=== PATIENT | male | born 1985 | race Caucasian/White ===

== ENCOUNTER 2016-05-31 08:11 | Emergency (ER) | payer OTHER ==
[2016-05-31] MEDS ORDERED: Sodium Chloride 0.9% 1,000 ML IV STA ×2 (08:59→11:06)
[2016-05-31] MEDS ORDERED: Famotidine 20mg/50ml 50 ML IV STA (08:59)
--- NOTE | 2016-05-31 09:02 | ED PDOC ---
Arrival/HPI - General Chief Complaint: Abdominal Pain Time Seen by Provider: 05/31/16 08:59 Historian: Patient - History of Present Illness Narrative History of Present Illness (Text): 05/31/16 08:59 A 31 year old male, who denies any past medical history, presents to the emergency department complaining nausea, non-bilious non-bloody vomiting and abdominal cramping since this morning. Patient reports he ate shrimp and mussels last night. Patient denies any fever, diarrhea, chest pain, shortness of breath or any other complaints. Patient admits to marijuana use. PMD: None Time/Duration: Other (This morning) Symptom Course: Unchanged Quality: Other Context: Home Past Medical History - Provider Review Nursing Documentation Reviewed: Yes - Infectious Disease Hx of Infectious Diseases: None - Psychiatric Hx Substance Use: No Family/Social History - Physician Review Nursing Documentation Reviewed: Yes Family/Social History: No Known Family HX Smoking Status: WEEDS Hx Alcohol Use: No Hx Substance Use: No Allergies/Home Meds Allergies/Adverse Reactions: Allergies No Known Allergies Allergy (Verified 05/31/16 08:19) Physical Exam - Physical Exam Narrative Physical Exam (Text): - Review of Systems Constitutional: Normal. absent: Fatigue, Weight Change, Fevers Eyes: Normal ENT: Normal Respiratory: Normal absent: SOB, Cough, Sputum Cardiovascular: Normal absent: Chest pain, Palpitations, Syncope Gastrointestinal: (+) Abdominal cramping, Nausea, Vomiting absent: Diarrhea Genitourinary: Normal. absent: Dysuria, Frequency, Hematuria Musculoskeletal: Normal. absent: Arthralgias, Back Pain, Neck Pain Skin: Normal Neurological: Normal absent: Focal Weakness Endocrine: Normal Hemo/Lymphatic: Normal Psychiatric: Normal - Physical exam Patient appears age appropriate, speaking full sentences without difficulty - Systems Exam Head: Present: Atraumatic, Normocephalic Pupils: Present: PERRL Extraocular Muscles: Present: EOMI Conjunctiva: Present: Normal Mouth: Present: Moist Mucous Membranes Neck: Present: Normal Range of Motion. No: MIDLINE TENDERNESS, Paraspinal Tenderness Respiratory/Chest: Present: Clear to Auscultation, Good Air Exchange. No: Respiratory Distress, Accessory Muscle Use, Tachypneic Cardiovascular: Present: Regular Rate and Rhythm, Normal S1, S2, Peripheral Pulses Present. No: Murmurs Abdomen: Present: Normal Bowel Sounds, No: Tenderness, Peritoneal Signs, Rebound, Guarding, Distention Back: Present: Normal Inspection. No: Midline Tenderness, Paraspinal Tenderness Upper Extremity: Present: Normal Inspection. No: Cyanosis, Edema Lower Extremity: Present: Normal Inspection. No: Edema Neurological: Present: GCS=15, Speech Normal, cranial nerves II through XII fully intact with no cerebellar abnormality, neuro-sensory fully intact. No focal neurological deficits. Skin: Present: Warm, Dry, Normal Color. No: Rashes Lymphatic: Present: OX3, NI, NC Psychiatric: Present: Alert, Oriented x 3, Normal Insight, Normal Concentration Vital Signs Reviewed: Yes Vital Signs Temp Pulse Resp BP Pulse Ox 05/31/16 11:59 59 L 16 112/83 99 05/31/16 11:50 86 18 112/82 97 05/31/16 08:15 97.3 F L 18 141/102 H 98 05/31/16 08:12 97.3 F L 99 H 18 141/102 H 98 Temperature: Afebrile Blood Pressure: Hypertensive Pulse: Tachycardic Respiratory Rate: Normal Appearance: Positive for: Well-Appearing, Non-Toxic, Comfortable Pain Distress: None Mental Status: Positive for: Alert and Oriented X 3 Medical Decision Making ED Course and Treatment: 05/31/16 08:59 Impression: A 31 year old male with nausea, non-bilious non-bloody vomiting and abdominal cramping. Physical exam unremarkable. Plan: -- Abdomen and pelvis CT -- Labs -- Urinalysis -- Pepcid, IV fluids, Toradol nd Zofran -- Reassess and disposition Progress Notes: Report Date : 05/31/2016 10:37:00 PROCEDURE: CT Abdomen and Pelvis with contrast Dictator : Kevin Ibrahim MD IMPRESSION: Unremarkable contrast enhanced CT of the abdomen and pelvis. 05/31/16 13:21 On reevaluation, patient reports that he feels much better and would like to be discharged home. Patient's repeat abdominal exam is soft, nontender, non distended with positive bowel sounds in all 4 quadrants and no peritoneal signs. Patient is tolerating PO without any difficulty. Patient states he is not driving home Pt states he understands to return to the ER right away for new or worsening symptoms or for inability to f/u with PMD or specialist as instructed. Patient states that he fully agrees with and understands discharge instructions. States that he agrees with the plan and disposition. Verbalized and repeated discharge instructions and plan. I have given the patient opportunity to ask any additional questions. - Lab Interpretations Lab Results: 05/31/16 09:00 05/31/16 09:00 Lab Results 05/31/16 10:24: Urine Color Light yellow, Urine Appearance Clear, Urine pH 7.0, Ur Specific [place] 1.010, Urine Protein Trace H, Urine Glucose (UA) Negative, Urine Ketones Negative, Urine Blood Negative, Urine Nitrate Negative, Urine Bilirubin Negative, Urine Urobilinogen 0.2, Ur Leukocyte Esterase Negative, Urine RBC Negative, Urine WBC 0 - 2, Ur Epithelial Cells 0 - 2, Urine Bacteria Trace 05/31/16 09:00: WBC 8.0, RBC 4.66, Hgb 15.3, Hct 44.9, MCV 96.4, MCH 32.8, MCHC 34.1, RDW 12.9, Plt Count 219, MPV 11.8 H, Gran % 49.9 L, Lymph % (Auto) 38.3 H , [place] % (Auto) 9.2 H, Eos % (Auto) 2.0, Baso % (Auto) 0.6, Gran # 3.99, Lymph # 3.1, [place] # 0.7 H, Eos # 0.2, Baso # 0.05, PT 10.0, INR 0.93, APTT 24.3, Sodium 138, Potassium 4.1, Chloride 103, Carbon Dioxide 28, Anion Gap 11, BUN 15 , Creatinine 0.9, Est GFR ( Amer) > 60, Est GFR (Non-Af Amer) > 60, Random Glucose 100, Calcium 9.2, Total Bilirubin 0.6, AST 42, ALT 56, Alkaline Phosphatase 71, Total Protein 8.6 H, Albumin 4.1, Globulin 4.5, Albumin/ Globulin Ratio 0.9 L, Lipase 157 I have reviewed the lab results: Yes - RAD Interpretation Radiology Orders: 05/31/16 09:00 ABD & PELVIS IV CONTRAST ONLY [CT] Stat - Medication Orders Current Medication Orders: Discontinued Medications Acetaminophen (Tylenol 325mg Tab) 975 mg PO STAT STA Stop: 05/31/16 11:07 Last Admin: 05/31/16 11:49 Dose: 975 MG MAR Pain/Vitals Document 05/31/16 11:49 SRE (Rec: 05/31/16 11:49 SRE [id number]) Pain Reassessment Is This A Pain ReAssessment? Yes Sleep Is patient sleeping during reassessment? No Presence of Pain Presence of Pain Yes Pain Scale Used Pain Scale Used Numeric Location Pain Location Body Site Abdomen Description Intermittent Intensity 5 Scale Used Numeric Famotidine (Pepcid 20mg/50ml Premix) 50 mls @ 100 mls/hr IV STAT STA Stop: 05/31/16 09:28 Last Admin: 05/31/16 09:09 Dose: 100 MLS/HR eMAR Start Stop Document 05/31/16 09:09 SRE (Rec: 05/31/16 09:09 SRE [id number]) Intravenous Solution Start Date 05/31/16 Start Time 09:09 End Date 05/31/16 End time 09:40 Total Infusion Time 31 Sodium Chloride (Sodium Chloride 0.9%) 1,000 mls @ 1,000 mls/hr IV .Q1H STA Stop: 05/31/16 09:58 Last Admin: 05/31/16 09:10 Dose: 1,000 MLS/HR eMAR Start Stop Document 05/31/16 09:10 SRE (Rec: 05/31/16 09:10 SRE [id number]) Intravenous Solution Start Date 05/31/16 Start Time 09:10 End Date 05/31/16 End time 10:10 Total Infusion Time 60 Sodium Chloride (Sodium Chloride 0.9%) 1,000 mls @ 1,000 mls/hr IV .Q1H STA Stop: 05/31/16 12:05 Last Admin: 05/31/16 11:48 Dose: 1,000 MLS/HR eMAR Start Stop Document 05/31/16 11:48 SRE (Rec: 05/31/16 11:49 SRE [id number]) Intravenous Solution Start Date 05/31/16 Start Time 11:49 End Date 05/31/16 End time 12:50 Total Infusion Time 61 Iohexol (Omnipaque 350 100 Ml) Confirm Administered Dose 350 mg .ROUTE .STK-MED ONE Stop: 05/31/16 09:30 Ketorolac Tromethamine (Toradol) 15 mg IVP STAT STA Stop: 05/31/16 09:00 Last Admin: 05/31/16 09:09 Dose: 15 MG IVP Administration Document 05/31/16 09:09 SRE (Rec: 05/31/16 09:09 SRE [id number]) Charges for Administration # of IVP Administrations 1 Morphine Sulfate (Morphine) 4 mg IVP STAT STA Stop: 05/31/16 12:03 Last Admin: 05/31/16 12:27 Dose: 4 MG MAR Pain Assessment Document 05/31/16 12:27 SRE (Rec: 05/31/16 12:27 SRE [id number]) Pain Reassessment Is this a pain reassessment? Yes Sleep Is patient sleeping during reassessment? No Presence of Pain Presence of Pain Yes Pain Scale Used Pain Scale Used Numeric Location Pain Location Body Site Abdomen Description Description Intermittent Intensity of Pain at present 5 IVP Administration Document 05/31/16 12:27 SRE (Rec: 05/31/16 12:27 SRE [id number]) Charges for Administration # of IVP Administrations 1 Ondansetron HCl (Zofran Inj) 4 mg IVP STAT STA Stop: 05/31/16 09:00 Last Admin: 05/31/16 09:10 Dose: 4 MG IVP Administration Document 05/31/16 09:10 SRE (Rec: 05/31/16 09:10 SRE [id number]) Charges for Administration # of IVP Administrations 1 - Scribe Statement The provider has reviewed the documentation as recorded by the Francheska Kaplan Provider Scribe Attestation: All medical record entries made by the Scribe were at my direction and personally dictated by me. I have reviewed the chart and agree that the record accurately reflects my personal performance of the history, physical exam, medical decision making, and the department course for this patient. I have also personally directed, reviewed, and agree with the discharge instructions and disposition. Disposition/Present on Arrival - Present on Arrival Any Indicators Present on Arrival: No History of DVT/PE: No History of Uncontrolled Diabetes: No Urinary Catheter: No History of Decub. Ulcer: No History Surgical Site Infection Following: None - Disposition Have Diagnosis and Disposition been Completed?: Yes Diagnosis: Abdominal pain Disposition: HOME/ ROUTINE Disposition Time: 13:25 Patient Plan: Discharge Condition: GOOD Discharge Instructions (ExitCare): Gastroenteritis (ED), Acute Abdominal Pain ( ED) Additional Instructions: PLEASE RETURN TO THE EMERGENCY DEPARTMENT FOR NEW OR WORSENING SYMPTOMS. RETURN RIGHT AWAY IF YOU CANNOT FOLLOW UP WITH YOUR PRIMARY CARE DOCTOR, CLINIC, OR SPECIALIST IN 1-2 DAYS. Prescriptions: Ibuprofen [Motrin] 600 mg PO Q8 PRN #12 tab PRN Reason: Pain, Moderate (4-7) Famotidine [Pepcid] 20 mg PO BID #14 tab Ondansetron [Zofran Odt] 4 mg PO Q6 PRN #14 odt PRN Reason: Nausea/Vomiting Referrals: PCP,NO [Primary Care Provider] - Follow up with primary Sylvester Daniels MD [Staff Provider] - Follow up with primary Aaron Curry MD [Staff Provider] - Follow up with primary Forms: WORK NOTE
[2016-05-31 09:09] LABS: ADD MANUAL DIFF? NO
[2016-05-31 09:20] LABS: BASO # 0.05 K/mm3 (0.0-2.0); BASO % 0.6 % (0.0-3.0); EOS # 0.2 (0.0-0.7); GRAN # 3.99 (1.4-6.5); GRAN % 49.9 % (50.0-68.0); HEMATOCRIT 44.9 % (42.0-52.0); LYMPH # 3.1 (1.2-3.4); LYMPH % 38.3 % (22.0-35.0); MEAN CELL VOLUME 96.4 fL (80.0-105.0); MEAN CORPUSCULAR HEMOGLOBIN 32.8 pg (25.0-35.0); MEAN CORPUSCULAR HGB CONC 34.1 g/dl (31.0-37.0); MEAN PLATELET VOLUME 11.8 fl (7.0-11.0); MONO # 0.7 (0.1-0.6); MONO % 9.2 % (1.0-6.0); PLATELET COUNT 219 10^3/uL (120.0-450.0); RED CELL DISTRIBUTION WIDTH 12.9 % (11.5-14.5)
[2016-05-31 09:25] LABS: ALB/GLOB RATIO 0.9 (1.1-1.8); ALKALINE PHOSPHATASE 71 U/L (38-133); ALT/SGPT 56 U/L (7-56); AST/SGOT 42 U/L (15-59); BILIRUBIN,TOTAL 0.6 mg/dL (0.2-1.3); BLOOD UREA NITROGEN 15 mg/dL (7-21); CALCIUM 9.2 mg/dL (8.4-10.5); CARBON DIOXIDE 28 mmol/L (21-33); CHLORIDE 103 mmol/L (98-107); GFR AFRICAN-AMERICAN > 60; GLUCOSE,RANDOM 100 mg/dL (70-110); LIPASE 157 U/L (23-300); POTASSIUM 4.1 mmol/L (3.6-5.0); SODIUM 138 mmol/L (132-148); TOTAL PROTEIN 8.6 g/dL (5.8-8.3)
[2016-05-31 09:26] LABS: INR 0.93 (0.93-1.08); PARTIAL THROMBOPLASTIN TIME 24.3 Seconds (23.7-30.8)
[2016-05-31] MEDS ORDERED: Iohexol 350 MG/100 ML VIAL ONE (09:29)
[2016-05-31 10:36] LABS: URINE BILIRUBIN NEGATIVE (NEGATIVE); URINE BLOOD NEGATIVE (NEGATIVE); URINE GLUCOSE (UA) NEGATIVE (NEGATIVE); URINE KETONE NEGATIVE (NEGATIVE); URINE LEUKOCYTE ESTERASE NEGATIVE Leu/uL (NEGATIVE); URINE PROTEIN TRACE mg/dL (<30 mg/dL); URINE UROBILINOGEN 0.2 E.U./dL (<1 E.U./dL)
--- NOTE | 2016-05-31 10:38 | CT ---
PROCEDURE: CT Abdomen and Pelvis with contrast HISTORY: abd pain COMPARISON: None. TECHNIQUE: Contrast dose: 100 cc of Omni 350 Radiation dose: Total exam DLP = 663 mGy-cm. This CT exam was performed using one or more of the following dose reduction techniques: Automated exposure control, adjustment of the mA and/or kV according to patient size, and/or use of iterative reconstruction technique. FINDINGS: LOWER THORAX: Unremarkable. LIVER: Unremarkable. No gross lesion or ductal dilatation. GALLBLADDER AND BILE DUCTS: Unremarkable. PANCREAS: Unremarkable. No gross lesion or ductal dilatation. SPLEEN: Unremarkable. ADRENALS: Unremarkable. No mass. KIDNEYS AND URETERS: Unremarkable. No hydronephrosis. No solid mass. VASCULATURE: Unremarkable. No aortic aneurysm. BOWEL: Unremarkable. No obstruction. No gross mural thickening. APPENDIX: Normal appendix. PERITONEUM: Unremarkable. No free fluid. No free air. LYMPH NODES: Unremarkable. No enlarged lymph nodes. BLADDER: Unremarkable. REPRODUCTIVE: Unremarkable. BONES: No acute fracture. OTHER FINDINGS: There is a metal fragment in the right gluteal region. IMPRESSION: Unremarkable contrast enhanced CT of the abdomen and pelvis.
[2016-05-31 10:41] LABS: URINE APPEARANCE CLEAR (CLEAR); URINE COLOR LIGHT YELLOW (YELLOW)
[2016-05-31 10:42] LABS: URINE BACTERIA TRACE (NEG); URINE EPITHELIAL CELLS 0 - 2 /hpf (0-5); URINE RBC NEGATIVE /hpf (0-2); URINE WBC 0 - 2 /hpf (0-6)
[2016-05-31 12:00] VITALS: PULSE 59
[2016-05-31] MEDS ORDERED: Morphine 4 mg/ml ISec IVP STA (12:02)
[2016-05-31 13:49] VITALS: BP 118/76; RESP 18; TEMP 98.2; O2SAT 98
== END 2016-05-31 13:48 | disposition home or self-care (01) ==
LOC: ED 08:11
DX: R10.9 Unspecified abdominal pain (principal)
CPT/HCPCS: 74177; 80053; 81001; 83690; 85025; 85610; 85730; 96361; 96365; 96375; 99285; J1885; J2270; J2405; J7040; Q9967

== ENCOUNTER 2016-07-27 22:58 | Emergency (ER) | payer OTHER ==
[2016-07-27 23:37] VITALS: BP 114/73; PULSE 62; TEMP 98.2
--- NOTE | 2016-07-28 00:33 | ED PDOC ---
Arrival/HPI - General Chief Complaint: ENT Problem Time Seen by Provider: 07/28/16 00:20 Historian: Patient - History of Present Illness Narrative History of Present Illness (Text): 07/28/16 02:14 Beny Borja is a 31 year old male who presents to the emergency department complaining of sore throat discomfort since earlier today. Denies any fever, chills, headache, dizziness, chest pain, difficulty breathing, nausea, vomiting , diarrhea, urinary symptoms, or any other complaints at this time. Time/Duration: Other (since yesterday ) Symptom Onset: Gradual Symptom Course: Unchanged Severity Level: Mild Activities at Onset: Light Past Medical History - Provider Review Nursing Documentation Reviewed: Yes - Infectious Disease Hx of Infectious Diseases: None - Psychiatric Hx Substance Use: No (marijuana) - Anesthesia Hx Anesthesia: No Hx Anesthesia Reactions: No Hx Malignant Hyperthermia: No Family/Social History - Physician Review Nursing Documentation Reviewed: Yes Family/Social History: No Known Family HX Smoking Status: Light Smoker < 10 Cigarettes Daily Hx Alcohol Use: No Hx Substance Use: No (marijuana) Allergies/Home Meds Allergies/Adverse Reactions: Allergies No Known Allergies Allergy (Verified 07/27/16 23:37) Review of Systems - Physician Review All systems were reviewed & negative as marked: Yes - Review of Systems Constitutional: Normal. absent: Fatigue, Fevers ENT: Sore Throat Respiratory: Normal. absent: SOB, Cough, Sputum Cardiovascular: Normal. absent: Chest Pain, Palpitations Gastrointestinal: Normal. absent: Abdominal Pain, Stool Changes Genitourinary Male: Normal Neurological: Normal. absent: Headache, Dizziness Psychiatric: Normal Physical Exam Vital Signs Reviewed: Yes Vital Signs Temp Pulse Resp BP Pulse Ox 07/28/16 00:42 16 99 07/28/16 00:06 98.2 F 62 20 114/73 98 07/27/16 23:32 98.2 F 62 20 114/73 98 Temperature: Afebrile Blood Pressure: Normal Pulse: Regular Respiratory Rate: Normal Appearance: Positive for: Well-Appearing, Non-Toxic, Comfortable Pain Distress: None Mental Status: Positive for: Alert and Oriented X 3 - Systems Exam Head: Present: Atraumatic, Normocephalic Pupils: Present: PERRL Conjunctiva: Present: Normal Mouth: Present: Moist Mucous Membranes Pharnyx: Present: ERYTHEMA (erythematous tonsils ). No: EXUDATE Neck: Present: Normal Range of Motion Respiratory/Chest: Present: Clear to Auscultation, Good Air Exchange. No: Respiratory Distress, Accessory Muscle Use Cardiovascular: Present: Regular Rate and Rhythm, Normal S1, S2. No: Murmurs Abdomen: Present: Normal Bowel Sounds. No: Tenderness, Distention, Peritoneal Signs Upper Extremity: Present: Normal Inspection. No: Cyanosis, Edema Lower Extremity: Present: Normal Inspection. No: Edema Neurological: Present: GCS=15, CN II-XII Intact, Speech Normal Skin: Present: Warm, Dry, Normal Color. No: Rashes Psychiatric: Present: Alert, Oriented x 3, Normal Insight, Normal Concentration Medical Decision Making ED Course and Treatment: 07/28/16 02:19 Impression: A 31y/o male complaining of sore throat for past day Progress Notes: pt stable for discharge. Dc'd home on Amoxicillin and Motrin. Advised to present to emergency department for new/worsening symptoms and f/u with PMD within few days. - Medication Orders Current Medication Orders: Discontinued Medications Amoxicillin (Amoxil 500 Mg Cap) 500 mg PO STAT STA PRN Reason: Protocol Stop: 07/28/16 00:32 Last Admin: 07/28/16 00:40 Dose: 500 mg Ibuprofen (Motrin Tab) 800 mg PO STAT STA Stop: 07/28/16 00:32 Last Admin: 07/28/16 00:41 Dose: 800 mg - PA / MEDICATION COORDINATOR / Resident Statement / has reviewed & agrees with the documentation as recorded. Disposition/Present on Arrival - Present on Arrival Any Indicators Present on Arrival: No History of DVT/PE: No History of Uncontrolled Diabetes: No Urinary Catheter: No History of Decub. Ulcer: No History Surgical Site Infection Following: None - Disposition Have Diagnosis and Disposition been Completed?: Yes Diagnosis: Pharyngitis Disposition: HOME/ ROUTINE Disposition Time: 00:32 Patient Plan: Discharge Condition: GOOD Discharge Instructions (ExitCare): Pharyngitis (ED) Print Language: ROMANIAN Prescriptions: Amoxicillin 500 mg PO TID #30 tablet Ibuprofen [Motrin] 800 mg PO Q6H #20 tab Referrals: [facility] [place] [facility] [place] - Follow up with primary Forms: WORK NOTE
[2016-07-28 00:44] VITALS: RESP 16; O2SAT 99
== END 2016-07-28 00:52 | disposition home or self-care (01) ==
LOC: ED 22:58
DX: J02.9 Acute pharyngitis, unspecified (principal); F17.210 Nicotine dependence, cigarettes, uncomplicated

== ENCOUNTER 2016-08-12 20:35 | Emergency (ER) | payer OTHER ==
[2016-08-12] MEDS ORDERED: Sodium Chloride 0.9% 1,000 ML IV STA (20:58)
--- NOTE | 2016-08-12 21:02 | ED PDOC ---
Arrival/HPI - General Chief Complaint: Abdominal Pain Time Seen by Provider: 08/12/16 20:36 Historian: Patient - History of Present Illness Narrative History of Present Illness (Text): 08/12/16 20:55 Beny Borja is a 31 year old male, with no significant past medical history, who presents to the Emergency department complaining of vomiting and diarrhea today. Patient reports associated epigastric pain. Patient denies any fever, chills, chest pain, shortness of breath, urinary symptoms, back pain, neck pain , headache, dizziness, or any other complaints. Time/Duration: Other (today) Symptom Onset: Gradual Symptom Course: Unchanged Activities at Onset: Rest, Light Context: Home Past Medical History - Provider Review Nursing Documentation Reviewed: Yes - Infectious Disease Hx of Infectious Diseases: None - Psychiatric Hx Substance Use: No (marijuana) - Anesthesia Hx Anesthesia: No Hx Anesthesia Reactions: No Hx Malignant Hyperthermia: No Family/Social History - Physician Review Nursing Documentation Reviewed: Yes Family/Social History: Unknown Family HX Smoking Status: Former Smoker Hx Alcohol Use: No Hx Substance Use: No (marijuana) Allergies/Home Meds Allergies/Adverse Reactions: Allergies No Known Allergies Allergy (Verified 08/12/16 20:41) Review of Systems - Physician Review All systems were reviewed & negative as marked: Yes - Review of Systems Constitutional: Normal. absent: Fevers Eyes: Normal ENT: Normal Respiratory: Normal. absent: SOB, Cough Cardiovascular: Normal. absent: Chest Pain Gastrointestinal: Abdominal Pain, Diarrhea, Nausea, Vomiting Genitourinary Male: Normal. absent: Dysuria, Frequency, Hematuria, Urinary Output Changes Musculoskeletal: Normal. absent: Back Pain, Neck Pain Skin: Normal. absent: Rash Neurological: Normal. absent: Headache, Dizziness Endocrine: Normal Hemo/Lymphatic: Normal Psychiatric: Normal Physical Exam Vital Signs Reviewed: Yes Vital Signs Temp Pulse Resp BP Pulse Ox 08/12/16 23:45 18 99 08/12/16 20:41 98.6 F 65 16 145/104 H 97 Temperature: Afebrile Blood Pressure: Normal Pulse: Regular Respiratory Rate: Normal Appearance: Positive for: Well-Appearing, Non-Toxic, Comfortable Pain Distress: None Mental Status: Positive for: Alert and Oriented X 3 - Systems Exam Head: Present: Atraumatic, Normocephalic Pupils: Present: PERRL Extroacular Muscles: Present: EOMI Conjunctiva: Present: Normal Mouth: Present: Moist Mucous Membranes Neck: Present: Normal Range of Motion Respiratory/Chest: Present: Clear to Auscultation, Good Air Exchange. No: Respiratory Distress, Accessory Muscle Use Cardiovascular: Present: Regular Rate and Rhythm, Normal S1, S2. No: Murmurs Abdomen: Present: Normal Bowel Sounds. No: Tenderness, Distention, Peritoneal Signs Back: Present: Normal Inspection Upper Extremity: Present: Normal Inspection. No: Cyanosis, Edema Lower Extremity: Present: Normal Inspection. No: Edema Neurological: Present: GCS=15, CN II-XII Intact, Speech Normal Skin: Present: Warm, Dry, Normal Color. No: Rashes Psychiatric: Present: Alert, Oriented x 3, Normal Insight, Normal Concentration Medical Decision Making ED Course and Treatment: 08/12/16 20:55 Impression: 31 year old male complaining of vomiting, diarrhea, and epigastric pain. Differential Diagnosis include but are not limited to: gastritis Plan: -- Labs, lipase -- Urinalysis -- IV fluids -- Zofran -- Protonix -- Reassess and disposition Prior Visits: Notes and results from previous visits were reviewed. On 07/28/2016, pt was seen in the Emergency department complaining of sore throat. Pt was d/c home on Amoxicillin. Progress Notes: 08/12/16 23:23 On re-evaluation, the patient feels better and is in no acute distress. I have discussed the results and plan with the patient, who expresses understanding. Patient in agreement with plan to discharged home. Patient is stable for discharge. Patient was instructed to follow up with physician/clinic in 1-2 days or return if symptoms worsen or new concerning symptoms arise. Re-evaluation Time: 23:23 Reassessment Condition: Re-examined, Improved - Lab Interpretations Lab Results: 08/12/16 20:50 08/12/16 20:50 Lab Results 08/12/16 22:00: Urine Color Yellow, Urine Appearance Clear, Urine pH 6.0, Ur Specific [place] 1.025, Urine Protein Negative, Urine Glucose (UA) Negative, Urine Ketones Negative, Urine Blood Negative, Urine Nitrate Negative, Urine Bilirubin Negative, Urine Urobilinogen 0.2, Ur Leukocyte Esterase Negative 08/12/16 20:50: Sodium 139, Potassium 4.3, Chloride 103, Carbon Dioxide 27, Anion Gap 13, BUN 12, Creatinine 1.0, Est GFR ( Amer) > 60, Est GFR (Non- Af Amer) > 60, Random Glucose 89, Calcium 9.2, Total Bilirubin 0.7, AST 43, ALT 40, Alkaline Phosphatase 62, Total Protein 8.2, Albumin 4.2, Globulin 4.0, Albumin/Globulin Ratio 1.1, Lipase 141 08/12/16 20:50: PT 10.4, INR 0.96, APTT 23.8 08/12/16 20:50: WBC 8.6, RBC 4.45, Hgb 14.8, Hct 42.2, MCV 94.8, MCH 33.3, MCHC 35.1, RDW 12.6, Plt Count 179, MPV 12.4 H, Gran % 50.1, Lymph % (Auto) 39.0 H, [place] % (Auto) 8.5 H, Eos % (Auto) 1.9, Baso % (Auto) 0.5, Gran # 4.30, Lymph # 3.3, [place] # 0.7 H, Eos # 0.2, Baso # 0.04 I have reviewed the lab results: Yes - Medication Orders Current Medication Orders: Discontinued Medications Hydromorphone HCl (Dilaudid) 1 mg IVP STAT STA Stop: 08/12/16 21:40 Last Admin: 08/12/16 21:46 Dose: 1 mg Hydromorphone HCl (Dilaudid) Confirm Administered Dose 1 mg .ROUTE .STK-MED ONE Stop: 08/12/16 21:46 Last Admin: 08/12/16 21:48 Dose: Sodium Chloride (Sodium Chloride 0.9%) 1,000 mls @ 1,000 mls/hr IV .Q1H STA Stop: 08/12/16 21:57 Last Admin: 08/12/16 21:13 Dose: 1,000 mls/hr Morphine Sulfate (Morphine) 2 mg IVP STAT STA Stop: 08/12/16 21:22 Last Admin: 08/12/16 21:25 Dose: 2 mg Morphine Sulfate (Morphine) Confirm Administered Dose 2 mg .ROUTE .STK-MED ONE Stop: 08/12/16 21:24 Last Admin: 08/12/16 21:47 Dose: Ondansetron HCl (Zofran Inj) 4 mg IVP STAT STA Stop: 08/12/16 20:59 Last Admin: 08/12/16 21:14 Dose: 4 mg Pantoprazole Sodium (Protonix Inj) 40 mg IVP ONCE STA Stop: 08/12/16 21:02 Last Admin: 08/12/16 21:14 Dose: 40 mg - Nolviaibcristofer Statement The provider has reviewed the documentation as recorded by the Francheska Keenan All medical record entries made by the Francheska were at my direction and personally dictated by me. I have reviewed the chart and agree that the record accurately reflects my personal performance of the history, physical exam, medical decision making, and the department course for this patient. I have also personally directed, reviewed, and agree with the discharge instructions and disposition. Disposition/Present on Arrival - Present on Arrival Any Indicators Present on Arrival: No History of DVT/PE: No History of Uncontrolled Diabetes: No Urinary Catheter: No History of Decub. Ulcer: No History Surgical Site Infection Following: None - Disposition Have Diagnosis and Disposition been Completed?: Yes Diagnosis: Gastritis Disposition: HOME/ ROUTINE Disposition Time: 23:24 Condition: GOOD Discharge Instructions (ExitCare): Gastritis (ED) Prescriptions: Pantoprazole Sodium [Protonix] 40 mg PO DAILY #14 ect Ondansetron [Zofran Odt] 8 mg PO TID PRN #10 odt PRN Reason: Nausea/Vomiting
[2016-08-12 21:08] VITALS: BP 145/104; PULSE 65; TEMP 98.6
[2016-08-12 21:17] LABS: ADD MANUAL DIFF? NO
[2016-08-12 21:20] LABS: BASO # 0.04 K/mm3 (0.0-2.0); BASO % 0.5 % (0.0-3.0); EOS # 0.2 (0.0-0.7); EOS % 1.9 % (1.5-5.0); GRAN % 50.1 % (50.0-68.0); HEMATOCRIT 42.2 % (42.0-52.0); LYMPH # 3.3 (1.2-3.4); MEAN CELL VOLUME 94.8 fL (80.0-105.0); MEAN CORPUSCULAR HEMOGLOBIN 33.3 pg (25.0-35.0); MEAN CORPUSCULAR HGB CONC 35.1 g/dl (31.0-37.0); MEAN PLATELET VOLUME 12.4 fl (7.0-11.0); MONO # 0.7 (0.1-0.6); MONO % 8.5 % (1.0-6.0); PLATELET COUNT 179 10^3/uL (120.0-450.0); RED CELL DISTRIBUTION WIDTH 12.6 % (11.5-14.5); WHITE BLOOD COUNT 8.6 10^3/ul (4.5-11.0)
[2016-08-12] MEDS ORDERED: Morphine 2 mg/ml ISec IVP STA (21:21)
[2016-08-12] MEDS ORDERED: Morphine 2 mg/ml ISec ONE (21:23)
[2016-08-12 21:32] LABS: INR 0.96 (0.93-1.08); PARTIAL THROMBOPLASTIN TIME 23.8 Seconds (23.7-30.8)
[2016-08-12 21:37] LABS: ALB/GLOB RATIO 1.1 (1.1-1.8); ALKALINE PHOSPHATASE 62 U/L (38-133); ALT/SGPT 40 U/L (7-56); AST/SGOT 43 U/L (15-59); BILIRUBIN,TOTAL 0.7 mg/dL (0.2-1.3); BLOOD UREA NITROGEN 12 mg/dL (7-21); CALCIUM 9.2 mg/dL (8.4-10.5); CARBON DIOXIDE 27 mmol/L (21-33); CHLORIDE 103 mmol/L (98-107); GFR AFRICAN-AMERICAN > 60; GLUCOSE,RANDOM 89 mg/dL (70-110); LIPASE 141 U/L (23-300); POTASSIUM 4.3 mmol/L (3.6-5.0); SODIUM 139 mmol/L (132-148); TOTAL PROTEIN 8.2 g/dL (5.8-8.3)
[2016-08-12] MEDS ORDERED: HYDROmorphone 1 mg/ml ISec IVP STA (21:39)
[2016-08-12] MEDS ORDERED: HYDROmorphone 1 mg/ml ISec ONE (21:45)
[2016-08-12 22:18] LABS: URINE BILIRUBIN NEGATIVE (NEGATIVE); URINE BLOOD NEGATIVE (NEGATIVE); URINE GLUCOSE (UA) NEGATIVE (NEGATIVE); URINE KETONE NEGATIVE (NEGATIVE); URINE LEUKOCYTE ESTERASE NEGATIVE Leu/uL (NEGATIVE); URINE PROTEIN NEGATIVE mg/dL (<30 mg/dL); URINE UROBILINOGEN 0.2 E.U./dL (<1 E.U./dL)
[2016-08-12 22:21] LABS: URINE APPEARANCE CLEAR (CLEAR); URINE COLOR YELLOW (YELLOW)
[2016-08-12 23:55] VITALS: RESP 18; O2SAT 99
== END 2016-08-12 23:47 | disposition home or self-care (01) ==
LOC: ED 20:35
DX: K29.70 Gastritis, unspecified, without bleeding (principal)
CPT/HCPCS: 80053; 81003; 83690; 85025; 85610; 85730; 96374; 96375; 99283; C9113; J1170; J2270; J2405; J7040

== ENCOUNTER 2017-01-29 03:27 | Emergency (ER) | payer SELFPAY ==
[2017-01-29 03:37] VITALS: BMI 25.1
[2017-01-29 03:45] VITALS: RESP 17; TEMP 98.3
--- NOTE | 2017-01-29 03:56 | ED PDOC ---
Arrival/HPI - General Chief Complaint: Abdominal Pain Time Seen by Provider: 01/29/17 03:30 Historian: Patient - History of Present Illness Narrative History of Present Illness (Text): 01/29/17 03:35 Beny Borja is a 32 year old male complaining of generalized abdominal pain tonight. Patient denies any fevers, chills, chest pain, shortness of breath, nausea, vomiting, diarrhea, back pain, neck pain, urinary/bowel changes, headache, dizziness, or any other complaint. Time/Duration: 1-3 hours Symptom Onset: Gradual Symptom Course: Unchanged Activities at Onset: Light Past Medical History - Provider Review Nursing Documentation Reviewed: Yes - Infectious Disease Hx of Infectious Diseases: None - Pulmonary Hx Respiratory Disorders: No - Psychiatric Hx Substance Use: No (marijuana) - Anesthesia Hx Anesthesia: No Hx Anesthesia Reactions: No Hx Malignant Hyperthermia: No Family/Social History - Physician Review Nursing Documentation Reviewed: Yes Family/Social History: No Known Family HX Smoking Status: Light Smoker < 10 Cigarettes Daily Hx Alcohol Use: No Hx Substance Use: No (marijuana) Allergies/Home Meds Allergies/Adverse Reactions: Allergies No Known Allergies Allergy (Verified 08/12/16 20:41) Review of Systems - Physician Review All systems were reviewed & negative as marked: Yes - Review of Systems Constitutional: absent: Fevers, Night Sweats Eyes: absent: Vision Changes ENT: absent: Hearing Changes Respiratory: absent: SOB, Cough Cardiovascular: absent: Chest Pain Gastrointestinal: Abdominal Pain Genitourinary Male: absent: Dysuria Musculoskeletal: absent: Arthralgias, Back Pain Skin: absent: Rash, Pruritis Neurological: absent: Headache, Dizziness Endocrine: absent: Diaphoresis Hemo/Lymphatic: absent: Adenopathy Psychiatric: absent: Anxiety, Depression Physical Exam Vital Signs Reviewed: Yes Vital Signs Temp Pulse Resp BP Pulse Ox 01/29/17 06:30 64 17 122/60 99 01/29/17 03:44 98.3 F 56 L 17 111/77 97 Temperature: Afebrile Blood Pressure: Normal Pulse: Bradycardic Respiratory Rate: Normal Appearance: Positive for: Well-Appearing, Non-Toxic, Comfortable Pain Distress: None Mental Status: Positive for: Alert and Oriented X 3 - Systems Exam Head: Present: Atraumatic, Normocephalic Pupils: Present: PERRL Extroacular Muscles: Present: EOMI Conjunctiva: Present: Normal Mouth: Present: Moist Mucous Membranes Neck: Present: Normal Range of Motion Respiratory/Chest: Present: Clear to Auscultation, Good Air Exchange. No: Respiratory Distress, Accessory Muscle Use Cardiovascular: Present: Regular Rate and Rhythm, Normal S1, S2. No: Murmurs Abdomen: Present: Normal Bowel Sounds. No: Tenderness, Distention, Peritoneal Signs Back: Present: Normal Inspection Upper Extremity: Present: Normal Inspection. No: Cyanosis, Edema Lower Extremity: Present: Normal Inspection. No: Edema Neurological: Present: GCS=15, CN II-XII Intact, Speech Normal Skin: Present: Warm, Dry, Normal Color. No: Rashes Psychiatric: Present: Alert, Oriented x 3, Normal Insight, Normal Concentration Medical Decision Making ED Course and Treatment: 01/29/17 03:54 Impression: 32 year old male complaining of generalized abdominal pain tonight. Differential Diagnosis included but are not limited to: gastritis Plan: -- Urinalysis -- Labs -- Protonix, Toradol, and IV fluids -- Reassess and disposition Prior Visits: Notes and results from previous visits were reviewed. Patient was last seen in the emergency department on 08/12/16 for vomiting and diarrhea. Patient was discharged home. Progress Notes: 01/30/17 05:56 On re-evaluation, patient feels better and is in no acute distress. I have discussed the results and plan with the patient, who expresses understanding. Patient in agreement with plan to be discharged home. Patient is stable for discharge. Patient was instructed to follow up with physician or return if symptoms worsen or new concerning symptoms arise. Re-evaluation Time: 05:56 Reassessment Condition: Re-examined, Improved - Lab Interpretations Lab Results: 01/29/17 04:15 01/29/17 04:15 Lab Results 01/29/17 05:10: Urine Color Yellow, Urine Appearance Clear, Urine pH 6.0, Ur Specific [place] 1.025, Urine Protein Negative, Urine Glucose (UA) Negative, Urine Ketones Negative, Urine Blood Negative, Urine Nitrate Negative, Urine Bilirubin Negative, Urine Urobilinogen 0.2, Ur Leukocyte Esterase Negative 01/29/17 04:15: Sodium 137, Potassium 4.1, Chloride 104, Carbon Dioxide 26, Anion Gap 11, BUN 12, Creatinine 1.0, Est GFR ( Amer) > 60, Est GFR (Non- Af Amer) > 60, Random Glucose 99, Calcium 9.4, Total Bilirubin 0.5, AST 27, ALT 30, Alkaline Phosphatase 59, Total Protein 7.8, Albumin 4.2, Globulin 3.5, Albumin/Globulin Ratio 1.2, Lipase 94 01/29/17 04:15: PT 11.4, INR 1.04, APTT 27.4 01/29/17 04:15: WBC 10.2, RBC 4.43, Hgb 14.7, Hct 43.5, MCV 98.2, MCH 33.2, MCHC 33.8, RDW 12.8, Plt Count 165, MPV 11.1 H, Gran % 66.6, Lymph % (Auto) 24.4 , [place] % (Auto) 7.1 H, Eos % (Auto) 1.4 L, Baso % (Auto) 0.5, Gran # 6.81 H, Lymph # 2.5, [place] # 0.7 H, Eos # 0.1, Baso # 0.05 I have reviewed the lab results: Yes - Medication Orders Current Medication Orders: Discontinued Medications Sodium Chloride (Sodium Chloride 0.9%) 1,000 mls @ 80 mls/hr IV .[id number] Last Admin: 01/29/17 04:21 Dose: 80 mls/hr eMAR Start Stop Document 01/29/17 04:21 RD (Rec: 01/29/17 04:21 RD [id number]) Intravenous Solution Start Date 01/29/17 Start Time 04:21 Ketorolac Tromethamine (Toradol) 30 mg IVP ONCE ONE Stop: 01/29/17 03:54 Last Admin: 01/29/17 04:17 Dose: 30 mg MAR Pain Assessment Document 01/29/17 04:17 RD (Rec: 01/29/17 04:21 RD [id number]) Pain Reassessment Is this a pain reassessment? Yes Sleep Is patient sleeping during reassessment? No Presence of Pain Presence of Pain Yes IVP Administration Document 01/29/17 04:17 RD (Rec: 01/29/17 04:21 RD [id number]) Charges for Administration # of IVP Administrations 1 Pantoprazole Sodium (Protonix Inj) 40 mg IVP ONCE STA Stop: 01/29/17 03:54 Last Admin: 01/29/17 04:20 Dose: 40 mg IVP Administration Document 01/29/17 04:20 RD (Rec: 01/29/17 04:20 RD [id number]) Charges for Administration # of IVP Administrations 1 - Scribe Statement The provider has reviewed the documentation as recorded by the Nolviaibcristofer Granado Provider Scribe Attestation: All medical record entries made by the Scribe were at my direction and personally dictated by me. I have reviewed the chart and agree that the record accurately reflects my personal performance of the history, physical exam, medical decision making, and the department course for this patient. I have also personally directed, reviewed, and agree with the discharge instructions and disposition. Disposition/Present on Arrival - Present on Arrival Any Indicators Present on Arrival: No History of DVT/PE: No History of Uncontrolled Diabetes: No Urinary Catheter: No History of Decub. Ulcer: No History Surgical Site Infection Following: None - Disposition Have Diagnosis and Disposition been Completed?: Yes Diagnosis: Gastritis Disposition: HOME/ ROUTINE Disposition Time: 05:57 Condition: GOOD Discharge Instructions (ExitCare): Gastritis (ED) Prescriptions: Pantoprazole Sodium [Protonix] 40 mg PO DAILY #14 ect Forms: [employer] ([place])
[2017-01-29] MEDS ORDERED: Sodium Chloride 0.9% 1,000 ML IV SCH (04:00)
[2017-01-29 04:30] LABS: BASO # 0.05 K/mm3 (0.0-2.0); BASO % 0.5 % (0.0-3.0); EOS # 0.1 (0.0-0.7); EOS % 1.4 % (1.5-5.0); GRAN # 6.81 (1.4-6.5); GRAN % 66.6 % (50.0-68.0); HEMATOCRIT 43.5 % (42.0-52.0); LYMPH # 2.5 (1.2-3.4); LYMPH % 24.4 % (22.0-35.0); MEAN CELL VOLUME 98.2 fl (80.0-105.0); MEAN CORPUSCULAR HEMOGLOBIN 33.2 pg (25.0-35.0); MEAN CORPUSCULAR HGB CONC 33.8 g/dl (31.0-37.0); MEAN PLATELET VOLUME 11.1 fl (7.0-11.0); MONO # 0.7 (0.1-0.6); MONO % 7.1 % (1.0-6.0); RED CELL DISTRIBUTION WIDTH 12.8 % (11.5-14.5); WHITE BLOOD COUNT 10.2 10^3/ul (4.5-11.0)
[2017-01-29 04:35] LABS: ALB/GLOB RATIO 1.2 (1.1-1.8); ALKALINE PHOSPHATASE 59 U/L (38-126); ALT/SGPT 30 U/L (7-56); AST/SGOT 27 U/L (17-59); BILIRUBIN,TOTAL 0.5 mg/dL (0.2-1.3); BLOOD UREA NITROGEN 12 mg/dL (7-21); CALCIUM 9.4 mg/dL (8.4-10.5); CARBON DIOXIDE 26 mmol/L (21-33); CHLORIDE 104 mmol/L (98-107); GFR AFRICAN-AMERICAN > 60; GLUCOSE,RANDOM 99 mg/dL (70-110); LIPASE 94 U/L (23-300); POTASSIUM 4.1 mmol/L (3.6-5.0); SODIUM 137 mmol/L (132-148); TOTAL PROTEIN 7.8 g/dL (5.8-8.3)
[2017-01-29 04:43] LABS: INR 1.04 (0.93-1.08); PARTIAL THROMBOPLASTIN TIME 27.4 Seconds (25.1-36.5)
[2017-01-29 05:47] LABS: URINE BILIRUBIN NEGATIVE (NEGATIVE); URINE BLOOD NEGATIVE (NEGATIVE); URINE GLUCOSE (UA) NEGATIVE (NEGATIVE); URINE KETONE NEGATIVE (NEGATIVE); URINE LEUKOCYTE ESTERASE NEGATIVE Leu/uL (NEGATIVE); URINE PROTEIN NEGATIVE mg/dL (<30 mg/dL); URINE UROBILINOGEN 0.2 E.U./dL (<1 E.U./dL)
[2017-01-29 05:49] LABS: URINE APPEARANCE CLEAR (CLEAR); URINE COLOR YELLOW (YELLOW)
[2017-01-29 06:33] VITALS: BP 122/60; PULSE 64; O2SAT 99
== END 2017-01-29 06:30 | disposition home or self-care (01) ==
LOC: ED 03:27
DX: K29.70 Gastritis, unspecified, without bleeding (principal); F17.210 Nicotine dependence, cigarettes, uncomplicated
CPT/HCPCS: 80053; 81003; 83690; 85025; 85610; 85730; 96374; 96375; 99283; C9113; J1885; J7040

== ENCOUNTER 2017-02-23 10:32 | Emergency (ER) | payer OTHER ==
[2017-02-23 10:39] VITALS: BMI 23.7
[2017-02-23] MEDS ORDERED: Sodium Chloride 0.9% 500 ML IV STA (10:41)
--- NOTE | 2017-02-23 10:45 | ED PDOC ---
Arrival/HPI - General Time Seen by Provider: 02/23/17 10:38 Historian: Patient - History of Present Illness Narrative History of Present Illness (Text): 02/23/17 10:42 32 y/o male, pmh including gastritis, nkda, c/o epigastric abdominal pain since last night. Pt. stated that he stayed up all night last night to take care of his son, unable to sleep, had a sandwich at late night and been feeling indigestion with discomfort, no fever or chills, no night sweat, no rash, no numbness or tingling, no dizziness, no flank pain, no nausea or vomiting, no other medical or psychological complaints. Past Medical History - Provider Review Nursing Documentation Reviewed: Yes - Infectious Disease Hx of Infectious Diseases: None - Pulmonary Hx Respiratory Disorders: No - Psychiatric Hx Substance Use: No (marijuana) - Anesthesia Hx Anesthesia: No Hx Anesthesia Reactions: No Hx Malignant Hyperthermia: No Family/Social History - Physician Review Nursing Documentation Reviewed: Yes Family/Social History: Unknown Family HX Smoking Status: Light Smoker < 10 Cigarettes Daily Hx Alcohol Use: No Hx Substance Use: No (marijuana) Allergies/Home Meds Allergies/Adverse Reactions: Allergies No Known Allergies Allergy (Verified 02/23/17 10:48) Review of Systems - Review of Systems Constitutional: absent: Fatigue, Fevers Eyes: absent: Vision Changes ENT: absent: Hearing Changes, Rhinorrhea Respiratory: absent: SOB, Cough, Sputum Cardiovascular: absent: Chest Pain Gastrointestinal: Abdominal Pain. absent: Constipation, Diarrhea, Nausea, Vomiting Musculoskeletal: absent: Arthralgias, Back Pain Skin: absent: Rash, Pruritis Neurological: absent: Headache, Dizziness Psychiatric: absent: Anxiety, Depression Physical Exam - Systems Exam Head: Present: Atraumatic, Normocephalic Pupils: Present: PERRL Extroacular Muscles: Present: EOMI Conjunctiva: Present: Normal Mouth: Present: Moist Mucous Membranes Neck: Present: Normal Range of Motion Respiratory/Chest: Present: Clear to Auscultation, Good Air Exchange. No: Respiratory Distress, Accessory Muscle Use Cardiovascular: Present: Regular Rate and Rhythm, Normal S1, S2. No: Murmurs Abdomen: Present: Tenderness (+epigastric tenderness, negative quintanilla sign), Normal Bowel Sounds. No: Distention, Peritoneal Signs, Rebound, Guarding Back: Present: Normal Inspection Upper Extremity: Present: Normal Inspection. No: Cyanosis, Edema Lower Extremity: Present: Normal Inspection. No: Edema Neurological: Present: GCS=15, Speech Normal, Motor Func Grossly Intact, Gait Normal, Memory Normal Skin: Present: Warm, Dry, Normal Color. No: Rashes Psychiatric: Present: Alert, Oriented x 3, Normal Insight, Normal Concentration Medical Decision Making ED Course and Treatment: 02/23/17 10:44 -labs -IVF/pepcid -Observe and reassess 02/23/17 13:08 -Labs are non-significant -Pain resolved, abdominal is soft with no tenderness or guarding now, will discharge home. -Discharge home with prilosec, avoid late night eating, eat small and frequent meals, avoid acidic/spicy/sour/fried/grilled food and drinks, follow up with your own pmd and GI for endoscopy if pain persist, return to the ER for any new or worsening signs or symptoms. - Lab Interpretations Lab Results: 02/23/17 11:20 02/23/17 11:20 Lab Results 02/23/17 11:20: WBC 8.2, RBC 4.54, Hgb 14.8, Hct 44.0, MCV 96.9, MCH 32.6, MCHC 33.6, RDW 12.5, Plt Count 171, MPV 11.0, Gran % 63.2, Lymph % (Auto) 28.6, [place] % (Auto) 6.7 H, Eos % (Auto) 1.0 L, Baso % (Auto) 0.5, Gran # 5.17, Lymph # 2.3 , [place] # 0.6, Eos # 0.1, Baso # 0.04 02/23/17 11:20: Sodium 142, Potassium 4.2, Chloride 105, Carbon Dioxide 27, Anion Gap 14, BUN 11, Creatinine 0.9, Est GFR ( Amer) > 60, Est GFR (Non- Af Amer) > 60, Random Glucose 94, Calcium 10.1, Total Bilirubin 0.5, AST 28, ALT 48, Alkaline Phosphatase 70, Total Protein 7.9, Albumin 4.3, Globulin 3.6, Albumin/Globulin Ratio 1.2, Lipase 254 I have reviewed the lab results: Yes Interpretation: No clinic. lab abnormalty - Medication Orders Current Medication Orders: Discontinued Medications Famotidine (Pepcid) 20 mg IVP STAT STA Stop: 02/23/17 10:42 Last Admin: 02/23/17 11:29 Dose: 20 mg IVP Administration Document 02/23/17 11:29 SF (Rec: 02/23/17 11:29 SF [email or web address]) Charges for Administration # of IVP Administrations 1 Sodium Chloride (Sodium Chloride 0.9%) 500 mls @ 999 mls/hr IV .Q31M STA Stop: 02/23/17 11:11 Last Admin: 02/23/17 11:29 Dose: 999 mls/hr eMAR Start Stop Document 02/23/17 11:29 SF (Rec: 02/23/17 11:29 SF [email or web address]) Intravenous Solution Start Date 02/23/17 Start Time 11:29 End Date 02/23/17 End time 12:00 Total Infusion Time 31 - PA / [employer] / Resident Statement / has reviewed & agrees with the documentation as recorded. Disposition/Present on Arrival - Present on Arrival Any Indicators Present on Arrival: No History of DVT/PE: No History of Uncontrolled Diabetes: No Urinary Catheter: No History of Decub. Ulcer: No History Surgical Site Infection Following: None - Disposition Have Diagnosis and Disposition been Completed?: Yes Diagnosis: Gastritis, Epigastric abdominal pain Disposition: HOME/ ROUTINE Disposition Time: 13:09 Patient Plan: Discharge Condition: GOOD Additional Instructions: -Discharge home with prilosec, avoid late night eating, eat small and frequent meals, avoid acidic/spicy/sour/fried/grilled food and drinks, follow up with your own pmd and GI for endoscopy if pain persist, return to the ER for any new or worsening signs or symptoms. Prescriptions: Omeprazole Magnesium [Prilosec Otc] 20 mg PO DAILY #21 tablet. Referrals: PCP,OSMAR [Primary Care Provider] - Follow up with primary [facility] [place] [Outside] - Follow up with primary Jl Cardenas MD [Staff Provider] - Follow up with primary Forms: WORK NOTE
[2017-02-23 11:34] LABS: BASO # 0.04 K/mm3 (0.0-2.0); BASO % 0.5 % (0.0-3.0); EOS # 0.1 (0.0-0.7); GRAN # 5.17 (1.4-6.5); GRAN % 63.2 % (50.0-68.0); HEMOGLOBIN 14.8 g/dL (14.0-18.0); LYMPH # 2.3 (1.2-3.4); LYMPH % 28.6 % (22.0-35.0); MEAN CELL VOLUME 96.9 fl (80.0-105.0); MEAN CORPUSCULAR HEMOGLOBIN 32.6 pg (25.0-35.0); MEAN CORPUSCULAR HGB CONC 33.6 g/dl (31.0-37.0); MONO # 0.6 (0.1-0.6); MONO % 6.7 % (1.0-6.0); RBC 4.54 10^6/uL (3.5-6.1); RED CELL DISTRIBUTION WIDTH 12.5 % (11.5-14.5); WHITE BLOOD COUNT 8.2 10^3/ul (4.5-11.0)
[2017-02-23 12:55] LABS: ALB/GLOB RATIO 1.2 (1.1-1.8); ALBUMIN 4.3 g/dL (3.0-4.8); ALT/SGPT 48 U/L (7-56); AST/SGOT 28 U/L (17-59); BLOOD UREA NITROGEN 11 mg/dL (7-21); CALCIUM 10.1 mg/dL (8.4-10.5); GFR AFRICAN-AMERICAN > 60; GFR NON-AFRICAN AMERICAN > 60; LIPASE 254 U/L (23-300)
[2017-02-23 13:30] VITALS: TEMP 98.4; O2SAT 100
[2017-02-23 13:32] VITALS: BP 100/63; PULSE 68; RESP 17
== END 2017-02-23 13:32 | disposition home or self-care (01) ==
LOC: ED 10:32
DX: K29.70 Gastritis, unspecified, without bleeding (principal)
CPT/HCPCS: 80053; 83690; 85025; 96361; 96374; 99285; J7040

== ENCOUNTER 2017-03-18 06:39 | Emergency (ER) | payer MEDICAID ==
[2017-03-18 06:40] VITALS: BMI 23.7
[2017-03-18] MEDS ORDERED: Sodium Chloride 0.9% 1,000 ML IV STA (07:11)
--- NOTE | 2017-03-18 07:19 | ED PDOC ---
Arrival/HPI - General Chief Complaint: Abdominal Pain Time Seen by Provider: 03/18/17 07:06 Historian: Patient - History of Present Illness Narrative History of Present Illness (Text): you were treated in the ED today for eating last night some regular type foods but he had a drink of alcohol with a smoothie type drink and now with nausea/ vomiting without bile or blood with epigastric cramping and otherwise without any travel/sick contacts/headache/dizziness/difficulty breathing/chest pain/ numbness/tingling/loss of limb function/pain with urination. 03/18/17 07:15 Time/Duration: 4-6 hours Symptom Onset: Gradual Symptom Course: Unchanged Quality: Aching, Cramping Severity Level: 4 Context: Sitting Past Medical History - Provider Review Nursing Documentation Reviewed: Yes - Travel History Have you recently traveled outside [place] w/in the past 3 mons?: No - Infectious Disease Hx of Infectious Diseases: None - Pulmonary Hx Respiratory Disorders: No - Gastrointestinal Hx Gastrointestinal Disorders: Yes Hx Gastritis: Yes - Psychiatric Hx Substance Use: No (marijuana) - Anesthesia Hx Anesthesia: No Hx Anesthesia Reactions: No Hx Malignant Hyperthermia: No Family/Social History - Physician Review Nursing Documentation Reviewed: Yes Family/Social History: No Known Family HX Smoking Status: Light Smoker < 10 Cigarettes Daily Hx Alcohol Use: No Hx Substance Use: No (marijuana) Allergies/Home Meds Allergies/Adverse Reactions: Allergies No Known Allergies Allergy (Verified 02/23/17 10:48) Review of Systems - Review of Systems Constitutional: Normal Eyes: Normal ENT: Normal Respiratory: Normal Cardiovascular: Normal Gastrointestinal: Abdominal Pain, Nausea, Vomiting Genitourinary Male: Normal Musculoskeletal: Normal Skin: Normal Neurological: Normal Endocrine: Normal Hemo/Lymphatic: Normal Psychiatric: Normal Physical Exam Vital Signs Reviewed: Yes Vital Signs Temp Pulse Resp BP Pulse Ox 03/18/17 08:40 71 18 136/78 98 03/18/17 06:40 97.7 F 65 16 138/83 100 Temperature: Afebrile Blood Pressure: Hypertensive Pulse: Regular Appearance: Positive for: Well-Appearing Pain Distress: None Mental Status: Positive for: Alert and Oriented X 3 - Systems Exam Head: Present: Atraumatic, Normocephalic Pupils: Present: PERRL Extroacular Muscles: Present: EOMI Conjunctiva: Present: Normal Ears: Present: Normal Mouth: Present: Moist Mucous Membranes Pharnyx: Present: Normal Nose (External): Present: Atraumatic Nose (Internal): Present: Normal Inspection Neck: Present: Normal Range of Motion Respiratory/Chest: Present: Clear to Auscultation, Good Air Exchange Cardiovascular: Present: Regular Rate and Rhythm Abdomen: No: Tenderness, Distention, Normal Bowel Sounds, Peritoneal Signs, Rebound, Guarding, McBurney's Point Tender, Rovsing's Sign Present, Hernias, Feeding Tubes, Ostomy Tubes, Mass/Organomegaly, Scars, Other Back: Present: Normal Inspection Upper Extremity: Present: Tenderness Lower Extremity: Present: Normal Inspection Neurological: Present: GCS=15, CN II-XII Intact, Speech Normal, Motor Func Grossly Intact Skin: Present: Warm, Normal Color Psychiatric: Present: Alert, Oriented x 3, Normal Insight, Normal Concentration Medical Decision Making ED Course and Treatment: you were treated in the ED today for eating last night some regular type foods but he had a drink of alcohol with a smoothie type drink and now with nausea/ vomiting without bile or blood with epigastric cramping and otherwise without any travel/sick contacts/headache/dizziness/difficulty breathing/chest pain/ numbness/tingling/loss of limb function/pain with urination. You were otherwise breathing easily, pink lips, talking easily, good strength/sensation, alert/ oriented, walking easily, clear lungs, no abdomen tenderness, no fever temp 97.7 , stable heart rate 65, stable breathing rate 16, excellent oxygen level 100% room air, elevated blood pressure 138/83 which we recommend repeat in 2-3 days primary care office to determine further treatment, you have blood tests mild infection count 11, stable blood level hemoglobin 14/platelets 169, stable chemistry, mildly elevated lipase 509, urine test no acute sign of infection, radiology ct abdomen/pelvis no acute findingd, intravenous fluids, zofran, protonix done in the ED with improvement, counselled to drink fluids, and you mentioned you ate a fatty meal prior last night and counseled to eat low fat diet and thus discharged home. 1. Recommend over the counter anti-acid medications daily. 2. Recommend zofran as directed for nausea/vomiting. 3. Recommend follow-up primary care 2-3 days to review symptoms, referral to gastroenterology as directed, referral to surgery clinic. 4. If any worsening pain, fever, chills, nausea, vomiting, difficulty breathing, numbness, loss of limb function, pain with urination or any medical condition then return to the ED. 03/18/17 10:00 CT abdominal and pelvic Impressions: No abdominal or pelvical abnormalities detected. 03/18/17 13:21 - Lab Interpretations Lab Results: 03/18/17 07:15 03/18/17 07:15 Lab Results 03/18/17 09:13: Urine Color Yellow, Urine Appearance Clear, Urine pH 6.0, Ur Specific [place] 1.020, Urine Protein Negative, Urine Glucose (UA) Negative, Urine Ketones Trace H, Urine Blood Negative, Urine Nitrate Negative, Urine Bilirubin Negative, Urine Urobilinogen 0.2, Ur Leukocyte Esterase Negative 03/18/17 07:15: Sodium 140, Potassium 3.7, Chloride 105, Carbon Dioxide 24, Anion Gap 15, BUN 13, Creatinine 1.0, Est GFR ( Amer) > 60, Est GFR (Non- Af Amer) > 60, Random Glucose 94, Calcium 9.8, Total Bilirubin 0.5, AST 30, ALT 34, Alkaline Phosphatase 66, Total Protein 8.5 H, Albumin 4.4, Globulin 4.1, Albumin/Globulin Ratio 1.1, Lipase 509 H 03/18/17 07:15: PT 11.9, INR 1.03, APTT 27.6 03/18/17 07:15: WBC 11.5 H D, RBC 4.45, Hgb 14.5, Hct 43.9, MCV 98.7, MCH 32.6, MCHC 33.0, RDW 12.6, Plt Count 169, MPV 11.8 H, Gran % 59.7, Lymph % (Auto) 30.8 , [place] % (Auto) 8.0 H, Eos % (Auto) 1.2 L, Baso % (Auto) 0.3, Gran # 6.84 H, Lymph # 3.5 H, [place] # 0.9 H, Eos # 0.1, Baso # 0.04 I have reviewed the lab results: Yes - RAD Interpretation Radiology Orders: 03/18/17 08:08 ABDOMEN & PELVIS [ABD & PELVIS IV CONTRAST ONLY] [CT] Stat Bench Lay Out Technician: ED Physician, Radiologist - Medication Orders Current Medication Orders: Discontinued Medications Sodium Chloride (Sodium Chloride 0.9%) 1,000 mls @ 1,000 mls/hr IV .Q1H STA Stop: 03/18/17 08:10 Last Admin: 03/18/17 07:19 Dose: 1,000 mls/hr eMAR Start Stop Document 03/18/17 07:19 MS (Rec: 03/18/17 07:19 MS [id number]) Intravenous Solution Start Date 03/18/17 Start Time 07:19 End Date 03/18/17 End time 08:19 Total Infusion Time 60 Ondansetron HCl (Zofran Inj) 4 mg IVP STAT STA Stop: 03/18/17 07:12 Last Admin: 03/18/17 07:19 Dose: 4 mg IVP Administration Document 03/18/17 07:19 MS (Rec: 03/18/17 07:19 MS [id number]) Charges for Administration # of IVP Administrations 1 Pantoprazole Sodium (Protonix Inj) 40 mg IVP STAT STA Stop: 03/18/17 07:12 Last Admin: 03/18/17 07:19 Dose: 40 mg IVP Administration Document 03/18/17 07:19 MS (Rec: 03/18/17 07:19 MS [id number]) Charges for Administration # of IVP Administrations 1 - Scribe Statement The provider has reviewed the documentation as recorded by the Francheska Gregory Provider Scribe Attestation: All medical record entries made by the Scribe were at my direction and personally dictated by me. I have reviewed the chart and agree that the record accurately reflects my personal performance of the history, physical exam, medical decision making, and the department course for this patient. I have also personally directed, reviewed, and agree with the discharge instructions and disposition. Disposition/Present on Arrival - Present on Arrival Any Indicators Present on Arrival: No History of DVT/PE: No History of Uncontrolled Diabetes: No Urinary Catheter: No History of Decub. Ulcer: No History Surgical Site Infection Following: None - Disposition Have Diagnosis and Disposition been Completed?: Yes Diagnosis: Gastritis Disposition: HOME/ ROUTINE Disposition Time: 13:22 Patient Plan: Discharge Condition: IMPROVED Additional Instructions: you were treated in the ED today for eating last night some regular type foods but he had a drink of alcohol with a smoothie type drink and now with nausea/ vomiting without bile or blood with epigastric cramping and otherwise without any travel/sick contacts/headache/dizziness/difficulty breathing/chest pain/ numbness/tingling/loss of limb function/pain with urination. You were otherwise breathing easily, pink lips, talking easily, good strength/sensation, alert/ oriented, walking easily, clear lungs, no abdomen tenderness, no fever temp 97.7 , stable heart rate 65, stable breathing rate 16, excellent oxygen level 100% room air, elevated blood pressure 138/83 which we recommend repeat in 2-3 days primary care office to determine further treatment, you have blood tests mild infection count 11, stable blood level hemoglobin 14/platelets 169, stable chemistry, mildly elevated lipase 509, urine test no acute sign of infection, radiology ct abdomen/pelvis no acute findingd, intravenous fluids, zofran, protonix done in the ED with improvement, counselled to drink fluids, and you mentioned you ate a fatty meal prior last night and counseled to eat low fat diet and thus discharged home. 1. Recommend over the counter anti-acid medications daily. 2. Recommend zofran as directed for nausea/vomiting. 3. Recommend follow-up primary care 2-3 days to review symptoms, referral to gastroenterology as directed, referral to surgery clinic. 4. If any worsening pain, fever, chills, nausea, vomiting, difficulty breathing, numbness, loss of limb function, pain with urination or any medical condition then return to the ED. Prescriptions: Famotidine [Pepcid] 20 mg PO DAILY 10 Days #10 tab Forms: [employer] (Pashto)
[2017-03-18 07:40] LABS: HEMOGLOBIN 14.5 g/dL (14.0-18.0); MEAN CELL VOLUME 98.7 fl (80.0-105.0); MEAN CORPUSCULAR HEMOGLOBIN 32.6 pg (25.0-35.0); RBC 4.45 10^6/uL (3.5-6.1); RED CELL DISTRIBUTION WIDTH 12.6 % (11.5-14.5); WHITE BLOOD COUNT 11.5 10^3/ul (4.5-11.0)
[2017-03-18 07:41] LABS: BASO # 0.04 K/mm3 (0.0-2.0); BASO % 0.3 % (0.0-3.0); EOS # 0.1 (0.0-0.7); EOS % 1.2 % (1.5-5.0); GRAN # 6.84 (1.4-6.5); GRAN % 59.7 % (50.0-68.0); LYMPH # 3.5 (1.2-3.4); LYMPH % 30.8 % (22.0-35.0); MEAN PLATELET VOLUME 11.8 fl (7.0-11.0); MONO # 0.9 (0.1-0.6)
[2017-03-18 07:55] LABS: INR 1.03 (0.93-1.08); PARTIAL THROMBOPLASTIN TIME 27.6 Seconds (25.1-36.5); PROTHROMBIN TIME 11.9 SECONDS (9.4-12.5)
[2017-03-18 07:58] LABS: ALB/GLOB RATIO 1.1 (1.1-1.8); ALBUMIN 4.4 g/dL (3.0-4.8); ALT/SGPT 34 U/L (7-56); AST/SGOT 30 U/L (17-59); BLOOD UREA NITROGEN 13 mg/dL (7-21); CALCIUM 9.8 mg/dL (8.4-10.5); GFR AFRICAN-AMERICAN > 60; GFR NON-AFRICAN AMERICAN > 60; LIPASE 509 U/L (23-300)
[2017-03-18] MEDS ORDERED: Iohexol 350 MG/100 ML VIAL ONE (08:14)
[2017-03-18 09:20] LABS: URINE BILIRUBIN NEGATIVE (NEGATIVE); URINE BLOOD NEGATIVE (NEGATIVE); URINE GLUCOSE (UA) NEGATIVE (NEGATIVE); URINE LEUKOCYTE ESTERASE NEGATIVE Leu/uL (NEGATIVE); URINE NITRATE NEGATIVE (NEGATIVE); URINE PROTEIN NEGATIVE mg/dL (<30 mg/dL); URINE UROBILINOGEN 0.2 E.U./dL (<1 E.U./dL)
[2017-03-18 09:21] LABS: URINE APPEARANCE CLEAR (CLEAR); URINE COLOR YELLOW (YELLOW)
[2017-03-18 13:20] VITALS: RESP 18; O2SAT 98
[2017-03-18 13:23] VITALS: BP 128/89; PULSE 77; TEMP 98.9
== END 2017-03-18 13:29 | disposition home or self-care (01) ==
LOC: ED 06:39
DX: K29.70 Gastritis, unspecified, without bleeding (principal)
CPT/HCPCS: 74177; 80053; 81003; 83690; 85025; 85610; 85730; 96361; 96374; 96375; 99284; C9113; J2405; J7040; Q9967